=== PATIENT | male | born 1980 | race Caucasian/White ===

== ENCOUNTER 2016-11-26 07:36 | Emergency (ER) | payer SELFPAY ==
[~2016-11-26] VITALS: Ht 154.9 cm; Wt 96.1 kg
[~2016-11-26 07:36] MED LIST: CEPH500C3 PO; DOXY100T PO; ULTR50TA PO
[2016-11-26 07:40] VITALS: BP 133/87; PULSE 76; RESP 16; TEMP 98.3; O2SAT 98
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
[2016-11-26] MEDS ORDERED: AMOX500T PO (07:57)
[2016-11-26] MEDS ORDERED: ULTR50TA5 PO (07:57)
== END 2016-11-26 08:35 | disposition home or self-care (01) ==
LOC: PHED 07:36
DX: K08.89 Other specified disorders of teeth and supporting structures (principal); I10 Essential (primary) hypertension
CPT/HCPCS: 99284

== ENCOUNTER 2017-03-01 05:08 | Emergency (ER) | payer SELFPAY ==
[~2017-03-01] VITALS: Ht 180.3 cm; Wt 104.9 kg
[~2017-03-01 05:08] MED LIST changes: +AMOX500T PO; -CEPH500C3 PO; -DOXY100T PO; -ULTR50TA PO; +ULTR50TA5 PO
[2017-03-01 05:10] VITALS: BP 145/90; PULSE 80; RESP 16; TEMP 97.7; O2SAT 98
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
[2017-03-01] MEDS ORDERED: TRAM50TA PO (05:43)
[2017-03-01] MEDS ORDERED: traMADol HCL 50 MG TAB PO ONE (05:45)
[2017-03-01] MEDS ORDERED: PENICILLIN V POTASSIUM 500 MG TAB PO ONE (05:45)
[2017-03-01 06:13] VITALS: RESP 18
== END 2017-03-01 06:14 | disposition home or self-care (01) ==
LOC: PHED 05:08
DX: K04.7 Periapical abscess without sinus (principal); K02.9 Dental caries, unspecified; E78.00 Pure hypercholesterolemia, unspecified; I10 Essential (primary) hypertension; F17.210 Nicotine dependence, cigarettes, uncomplicated
CPT/HCPCS: 99283